=== PATIENT | female | born 1995 | race African-American/Black ===

== ENCOUNTER 2019-05-07 16:57 | Emergency (ER) | payer SELFPAY ==
[~2019-05-07] VITALS: Ht 167.6 cm; Wt 91.0 kg
[2019-05-07] MEDS ORDERED: NITROGLYCERIN 0.4MG TABLET SL SL PRN (18:15)
[2019-05-07] MEDS ORDERED: ASPIRIN 81MG TABLET PO ONE (18:15)
[2019-05-07 18:31] LABS: BASOPHILS % 0.2 % (0.0-2.0); HEMATOCRIT. 38.1 % (36.0-48.0); HEMOGLOBIN. 12.8 g/dL (12.0-16.0); LYMPHOCYTES % 38.5 % (20.0-50.0); MEAN CORPUSCULAR HEMOGLOBIN 27.4 pg (28.0-32.0); MEAN CORPUSCULAR VOLUME 81.4 fL (81.0-99.0); MEAN PLATELET VOLUME 8.1 fl (7.4-10.4); MONOCYTES % 11.5 % (2.0-8.0); NEUTROPHILS % 49.8 % (40.0-76.0); PLATELET 411 x1000/uL (130-400); RED BLOOD CELL COUNT 4.67 mill/uL (4.2-5.4)
[2019-05-07 18:38] LABS: CHLORIDE 108 mEq/L (98-107)
[2019-05-07 18:42] LABS: D-DIMER 0.44 mg/L FEU (<0.50); INR 1.1; PARTIAL THROMBOPLASTIN TIME 27.8 sec (23.4-31.0); PROTHROMBIN TIME 10.9 sec (9.6-11.0)
[2019-05-07 18:47] LABS: T4 FREE 2.94 ng/dL (0.76-1.46)
[2019-05-07 19:18] LABS: HCG SCREEN NEGATIVE
[2019-05-07 19:50] VITALS: BP 125/69
== END 2019-05-07 21:17 | disposition left against medical advice (07) ==
LOC: ER 16:57
DX: R07.89 Other chest pain (principal); R06.02 Shortness of breath
CPT/HCPCS: 36415; 71045; 81025; 83880; 84439; 84443; 84481; 84484; 84703; 85379; 93005; 99284

== ENCOUNTER 2019-05-08 09:39 | Emergency (ER) | payer MEDICAID ==
[~2019-05-08] VITALS: Ht 167.6 cm; Wt 99.7 kg
[2019-05-08] MEDS ORDERED: SODIUM CHLORIDE 0.9% 1,000 ML IV ONE (10:39)
[2019-05-08 11:47] LABS: BASOPHILS % 0.2 % (0.0-2.0); HEMATOCRIT. 38.6 % (36.0-48.0); HEMOGLOBIN. 13.1 g/dL (12.0-16.0); LYMPHOCYTES % 42.8 % (20.0-50.0); MEAN CORPUSCULAR HEMOGLOBIN 27.7 pg (28.0-32.0); MEAN CORPUSCULAR VOLUME 81.7 fL (81.0-99.0); MEAN PLATELET VOLUME 8.3 fl (7.4-10.4); MONOCYTES % 10.9 % (2.0-8.0); NEUTROPHILS % 46.1 % (40.0-76.0); PLATELET 400 x1000/uL (130-400); RED BLOOD CELL COUNT 4.72 mill/uL (4.2-5.4); RED CELL DISTRIBUTION WIDTH 13.1 % (11.6-14.6)
[2019-05-08 11:49] LABS: CHLORIDE 107 mEq/L (98-107)
[2019-05-08 11:52] LABS: D-DIMER 0.52 mg/L FEU (<0.50); PROTHROMBIN TIME 10.7 sec (9.6-11.0)
[2019-05-08 12:08] LABS: HCG SCREEN NEGATIVE
[2019-05-08 12:41] LABS: CLARITY URINE CLEAR (CLEAR); COLOR URINE YELLOW (YELLOW); KETONES URINE NEGATIVE (NEGATIVE); LEUKOCYTE ESTERASE URINE NEGATIVE (NEGATIVE); NITRITE URINE NEGATIVE (NEGATIVE); OCCULT BLOOD URINE NEGATIVE (NEGATIVE); PH URINE 7.5 (4.5-8.0); PROTEIN URINE NEGATIVE (NEGATIVE); SPECIFIC GRAVITY URINE 1.015 (1.005-1.030)
[2019-05-08 13:04] LABS: *AMPHETAMINES SCREEN URINE NEGATIVE (NEGATIVE); *BARBITURATES SCREEN URINE NEGATIVE (NEGATIVE); *BENZODIAZEPINES SCREEN URINE NEGATIVE (NEGATIVE); *COCAINE SCREEN URINE NEGATIVE (NEGATIVE); METHADONE URINE SCREEN NEGATIVE (NEGATIVE)
[2019-05-08 13:05] LABS: CANNABINOID URINE SCREEN NEGATIVE (NEGATIVE); OPIATES URINE SCREEN NEGATIVE (NEGATIVE); PHENCYCLIDINE URINE SCREEN NEGATIVE (NEGATIVE)
[2019-05-08] MEDS ORDERED: IOHEXOL-350 100 ML BOTTLE ONE (16:49)
[2019-05-08 18:18] VITALS: BP 122/74
== END 2019-05-08 19:08 | disposition home or self-care (01) ==
LOC: ER 09:39 → CANBEDREQ 18:44 → ER 19:08
DX: E05.90 Thyrotoxicosis, unspecified without thyrotoxic crisis or storm (principal); Z88.8 Allergy status to other drugs, medicaments and biological substances; R07.89 Other chest pain; R06.02 Shortness of breath
CPT/HCPCS: 36415; 71275; 80053; 80305; 81003; 83880; 84484; 84703; 85025; 85379; 85610; 99284; J7030; Q9967

== ENCOUNTER 2019-06-26 20:48 | Emergency (ER) | payer MEDICAID ==
[~2019-06-26] VITALS: Ht 167.6 cm; Wt 100.0 kg
[2019-06-27] MEDS ORDERED: KETOROLAC 60MG/2ML VIAL IM STA (00:17)
[2019-06-27] MEDS ORDERED: PENICILLIN G BENZATHINE 1,200,000 UNITS/2ML SYR IM ONE (00:30)
[2019-06-27 01:12] VITALS: BP 120/82
== END 2019-06-27 01:13 | disposition home or self-care (01) ==
LOC: ER 20:48
DX: J02.9 Acute pharyngitis, unspecified (principal); J03.90 Acute tonsillitis, unspecified; E05.90 Thyrotoxicosis, unspecified without thyrotoxic crisis or storm; Z88.8 Allergy status to other drugs, medicaments and biological substances
CPT/HCPCS: 81025; 96372; 99283; J0561; J1885

== ENCOUNTER 2020-03-12 14:06 | Emergency (ER) | payer MEDICAID ==
[~2020-03-12] VITALS: Ht 167.6 cm; Wt 91.0 kg
[2020-03-12 14:17] VITALS: BP 128/82
[2020-03-12] MEDS ORDERED: ATEN-42 PO (14:20)
[2020-03-12] MEDS ORDERED: METH10TA7 PO (14:20)
== END 2020-03-12 15:43 | disposition home or self-care (01) ==
LOC: ER 14:06
DX: Z76.0 Encounter for issue of repeat prescription (principal); I10 Essential (primary) hypertension; E05.00 Thyrotoxicosis with diffuse goiter without thyrotoxic crisis or storm; Z88.8 Allergy status to other drugs, medicaments and biological substances
CPT/HCPCS: 99283

== ENCOUNTER 2020-04-01 14:57 | Emergency (ER) | payer MEDICAID ==
[~2020-04-01] VITALS: Ht 167.6 cm; Wt 96.5 kg
[~2020-04-01 14:57] MED LIST: ATEN-42 PO; METH10TA7 PO
[2020-04-01 16:48] LABS: BASOPHILS % 0.2 % (0.0-2.0); HEMATOCRIT. 40.2 % (36.0-48.0); HEMOGLOBIN. 13.6 g/dL (12.0-16.0); LYMPHOCYTES % 27.9 % (20.0-50.0); MEAN CORPUSCULAR HEMOGLOBIN 27.7 pg (28.0-32.0); MEAN CORPUSCULAR VOLUME 81.6 fL (81.0-99.0); MEAN PLATELET VOLUME 7.9 fl (7.4-10.4); MONOCYTES % 5.9 % (2.0-8.0); PLATELET 547 x1000/uL (130-400); RED BLOOD CELL COUNT 4.93 mill/uL (4.2-5.4); RED CELL DISTRIBUTION WIDTH 13.6 % (11.6-14.6)
[2020-04-01 16:54] LABS: CHLORIDE 104 mEq/L (98-107)
[2020-04-01 16:55] LABS: HCG SCREEN NEGATIVE
[2020-04-01 16:58] LABS: ETHANOL BLOOD < 10 mg/dL
[2020-04-01 17:04] LABS: T4 FREE 1.53 ng/dL (0.76-1.46)
[2020-04-01 17:20] LABS: CLARITY URINE CLEAR (CLEAR); COLOR URINE YELLOW (YELLOW); KETONES URINE TRACE (NEGATIVE); LEUKOCYTE ESTERASE URINE NEGATIVE (NEGATIVE); NITRITE URINE NEGATIVE (NEGATIVE); OCCULT BLOOD URINE NEGATIVE (NEGATIVE); PH URINE 5.5 (4.5-8.0); PROTEIN URINE NEGATIVE (NEGATIVE); SPECIFIC GRAVITY URINE 1.031 (1.005-1.030); UROBILINOGEN URINE 0.2 E.U./dL (0.2-1.0)
[2020-04-01 17:47] LABS: OPIATES URINE SCREEN NEGATIVE (NEGATIVE)
[2020-04-01 17:48] LABS: *AMPHETAMINES SCREEN URINE NEGATIVE (NEGATIVE); *BARBITURATES SCREEN URINE NEGATIVE (NEGATIVE); *BENZODIAZEPINES SCREEN URINE NEGATIVE (NEGATIVE); *COCAINE SCREEN URINE NEGATIVE (NEGATIVE); METHADONE URINE SCREEN NEGATIVE (NEGATIVE); PHENCYCLIDINE URINE SCREEN NEGATIVE (NEGATIVE)
[2020-04-01 17:50] LABS: CANNABINOID URINE SCREEN NEGATIVE (NEGATIVE)
[2020-04-01] MEDS ORDERED: ACETAMINOPHEN WITH CODEINE 300/30MG TABLET PO ONE (18:30)
[2020-04-01 18:38] VITALS: BP 124/65
== END 2020-04-01 18:39 | disposition home or self-care (01) ==
LOC: ER 14:57
DX: R51 Headache (principal); E05.90 Thyrotoxicosis, unspecified without thyrotoxic crisis or storm; Z88.8 Allergy status to other drugs, medicaments and biological substances; Z79.899 Other long term (current) drug therapy
CPT/HCPCS: 36415; 71045; 80053; 80305; 80320; 81003; 81025; 83880; 84439; 84443; 84484; 84703; 85025; 93005; 99285; G0480

== ENCOUNTER 2023-03-01 12:52 | Emergency (ER) | payer MEDICAID ==
[~2023-03-01] VITALS: Ht 167.6 cm; Wt 125.0 kg
[~2023-03-01 12:52] MED LIST changes: +METH-372 PO; -METH10TA7 PO
[2023-03-01 13:07] VITALS: BP 126/78
[2023-03-01] MEDS ORDERED: KETOROLAC 60MG/2ML VIAL IM STA (14:20)
[2023-03-01 15:12] LABS: HCG SCREEN NEGATIVE
[2023-03-01 15:15] LABS: CHLORIDE 107 mEq/L (98-107)
[2023-03-01 15:22] LABS: BASOPHILS % 0.3 % (0.0-2.0); HEMATOCRIT. 35.8 % (36.0-48.0); HEMOGLOBIN. 11.9 g/dL (12.0-16.0); LYMPHOCYTES % 28.8 % (20.0-50.0); MEAN CORPUSCULAR VOLUME 87.7 fL (81.0-99.0); MEAN PLATELET VOLUME 8.4 fl (7.4-10.4); MONOCYTES % 6.4 % (2.0-8.0); NEUTROPHILS % 64.5 % (40.0-76.0); PLATELET 422 x1000/uL (130-400); RED BLOOD CELL COUNT 4.09 mill/uL (4.2-5.4); RED CELL DISTRIBUTION WIDTH 13.4 % (11.6-14.6)
[2023-03-01 15:24] LABS: CLARITY URINE CLEAR (CLEAR); COLOR URINE YELLOW (YELLOW); KETONES URINE TRACE (NEGATIVE); LEUKOCYTE ESTERASE URINE NEGATIVE (NEGATIVE); NITRITE URINE NEGATIVE (NEGATIVE); OCCULT BLOOD URINE NEGATIVE (NEGATIVE); PH URINE 6.5 (4.5-8.0); PROTEIN URINE NEGATIVE (NEGATIVE); SPECIFIC GRAVITY URINE 1.026 (1.005-1.030)
[2023-03-01] MEDS ORDERED: NAPR-681 PO (15:57)
[2023-03-01] MEDS ORDERED: CYCL5TAB PO (15:57)
== END 2023-03-01 16:54 | disposition home or self-care (01) ==
LOC: ER 12:52
DX: K76.0 Fatty (change of) liver, not elsewhere classified (principal); Z88.8 Allergy status to other drugs, medicaments and biological substances
CPT/HCPCS: 36415; 71045; 76705; 80053; 81003; 81025; 83690; 84703; 85025; 96372; 99285; J1885

== ENCOUNTER 2023-04-09 18:22 | Emergency (ER) | payer OTHER ==
[~2023-04-09] VITALS: Ht 167.6 cm; Wt 120.7 kg
[~2023-04-09 18:22] MED LIST changes: +CYCL5TAB PO; +NAPR-681 PO
[2023-04-09 18:37] VITALS: BP 127/80
== END 2023-04-09 20:47 | disposition home or self-care (01) ==
LOC: ER 18:22
DX: O26.891 Other specified pregnancy related conditions, first trimester (principal); Z88.5 Allergy status to narcotic agent; Z3A.01 Less than 8 weeks gestation of pregnancy
CPT/HCPCS: 36415; 84702; 99283

== ENCOUNTER 2024-05-19 15:30 | Emergency (ER) | payer OTHER ==
[~2024-05-19] VITALS: Ht 170.2 cm; Wt 110.0 kg
[2024-05-19 15:34] VITALS: O2SAT 98
[2024-05-19] MEDS ORDERED: LACTATED RINGERS 1,000 ML IV SCH (16:00)
[2024-05-19 16:04] VITALS: TEMP 98.6
[2024-05-19 16:43] LABS: BASOPHILS % 0.3 % (0.0-2.0); HEMATOCRIT. 35.1 % (36.0-48.0); HEMOGLOBIN. 11.5 g/dL (12.0-16.0); LYMPHOCYTES % 25.5 % (20.0-50.0); MEAN CORPUSCULAR HEMOGLOBIN 26.9 pg (28.0-32.0); MEAN CORPUSCULAR HGB CONC 32.9 g/dL (31.0-37.0); MEAN PLATELET VOLUME 7.2 fl (7.4-10.4); MONOCYTES % 6.9 % (2.0-8.0); NEUTROPHILS % 67.3 % (40.0-76.0); PLATELET 482 x1000/uL (130-400); RED BLOOD CELL COUNT 4.28 mill/uL (4.2-5.4); RED CELL DISTRIBUTION WIDTH 13.2 % (11.6-14.6); WHITE BLOOD COUNT 7.9 x1000/uL (4.5-11.0)
[2024-05-19 16:50] LABS: CHLORIDE 106 mEq/L (98-107); POTASSIUM 3.3 mEq/L (3.5-5.1); SODIUM 138 mEq/L (136-145)
[2024-05-19 16:51] LABS: CALCIUM 9.2 mg/dL (8.7-10.4); CARBON DIOXIDE 23 mEq/L (21-32)
[2024-05-19 16:55] LABS: CREATININE 0.6 mg/dL (0.6-1.0)
[2024-05-19 16:56] LABS: GLUCOSE 100 mg/dL (70-105); UREA NITROGEN BLOOD 11 mg/dL (9-23)
[2024-05-19 17:00] LABS: HCG SCREEN NEGATIVE
[2024-05-19 17:15] LABS: TROPONIN I HIGH SENSITIVITY < 4 ng/L (3.0-34)
[2024-05-19 20:29] VITALS: BP 125/94; PULSE 111; RESP 17
[2024-05-19] MEDS ORDERED: IOHEXOL-350 100 ML BOTTLE ONE (23:50)
== END 2024-05-19 21:28 | disposition home or self-care (01) ==
LOC: ER 15:30
DX: R07.9 Chest pain, unspecified (principal); R42 Dizziness and giddiness; I10 Essential (primary) hypertension; E05.00 Thyrotoxicosis with diffuse goiter without thyrotoxic crisis or storm; Z98.890 Other specified postprocedural states; Z88.5 Allergy status to narcotic agent
CPT/HCPCS: 36415; 71045; 71275; 80048; 81025; 84484; 84703; 85025; 85379; 93005; 99285; Q9967

== ENCOUNTER 2024-07-31 12:00 | Emergency (ER) | payer OTHER ==
[~2024-07-31] VITALS: Ht 167.6 cm; Wt 129.0 kg
[2024-07-31 12:03] VITALS: BP 128/56; RESP 16; O2SAT 99
[2024-07-31 12:05] VITALS: PULSE 98; TEMP 37.22520
[2024-07-31] MEDS ORDERED: CEPH250C2 MT (13:16)
[2024-07-31] MEDS ORDERED: BO1 TP (13:16)
== END 2024-07-31 13:37 | disposition home or self-care (01) ==
LOC: ER 12:00
DX: K13.0 Diseases of lips (principal); Z88.5 Allergy status to narcotic agent; Z98.890 Other specified postprocedural states; E05.00 Thyrotoxicosis with diffuse goiter without thyrotoxic crisis or storm
CPT/HCPCS: 99283

== ENCOUNTER 2024-08-09 07:30 | Emergency (ER) | payer OTHER ==
[~2024-08-09] VITALS: Ht 167.6 cm; Wt 131.0 kg
[~2024-08-09 07:30] MED LIST changes: +BO1 TP; +CEPH250C2 MT
[2024-08-09 08:09] VITALS: O2SAT 100
[2024-08-09 08:57] LABS: BASOPHILS % 0.3 % (0.0-2.0); EOSINOPHILS % 0.1 % (0.0-5.0); HEMATOCRIT. 34.5 % (36.0-48.0); HEMOGLOBIN. 11.6 g/dL (12.0-16.0); MEAN CORPUSCULAR HGB CONC 33.5 g/dL (31.0-37.0); MEAN CORPUSCULAR VOLUME 80.4 fL (81.0-99.0); MEAN PLATELET VOLUME 7.5 fl (7.4-10.4); MONOCYTES % 7.6 % (2.0-8.0); PLATELET 468 x1000/uL (130-400); RED BLOOD CELL COUNT 4.29 mill/uL (4.2-5.4); WHITE BLOOD COUNT 6.5 x1000/uL (4.5-11.0)
[2024-08-09 09:05] LABS: CHLORIDE 109 mEq/L (98-107); POTASSIUM 3.4 mEq/L (3.5-5.1); SODIUM 138 mEq/L (136-145)
[2024-08-09 09:06] LABS: CALCIUM 9.1 mg/dL (8.7-10.4); CARBON DIOXIDE 23 mEq/L (21-32)
[2024-08-09 09:11] LABS: CREATININE 0.5 mg/dL (0.6-1.0); GLUCOSE 103 mg/dL (70-105); UREA NITROGEN BLOOD 13 mg/dL (9-23)
[2024-08-09 09:28] LABS: HCG SCREEN NEGATIVE
[2024-08-09 10:06] VITALS: BP 132/58; PULSE 84; RESP 18; TEMP 36.66960; O2SAT 100
== END 2024-08-09 10:14 | disposition home or self-care (01) ==
LOC: ER 07:30
DX: R06.02 Shortness of breath (principal); I10 Essential (primary) hypertension; G47.30 Sleep apnea, unspecified; E05.90 Thyrotoxicosis, unspecified without thyrotoxic crisis or storm; R51.9 Headache, unspecified; Z98.890 Other specified postprocedural states; Z79.899 Other long term (current) drug therapy; Z88.8 Allergy status to other drugs, medicaments and biological substances
CPT/HCPCS: 36415; 71045; 80048; 84703; 85025; 93005; 99285

== ENCOUNTER 2025-04-20 22:36 | Emergency (ER) | payer OTHER, MEDICAID ==
[~2025-04-20] VITALS: Ht 167.6 cm; Wt 138.0 kg
[~2025-04-20 22:36] MED LIST changes: -CYCL5TAB PO; +CYCL5TAB3 PO
[2025-04-20 22:42] VITALS: TEMP 36.6; O2SAT 98
[2025-04-20 23:30] LABS: CLARITY URINE CLEAR (CLEAR); COLOR URINE DARK YELLOW (YELLOW); GLUCOSE URINE NEGATIVE (NEGATIVE); KETONES URINE TRACE (NEGATIVE); LEUKOCYTE ESTERASE URINE NEGATIVE (NEGATIVE); NITRITE URINE NEGATIVE (NEGATIVE); OCCULT BLOOD URINE NEGATIVE (NEGATIVE); PROTEIN URINE 1+ (NEGATIVE); SPECIFIC GRAVITY URINE 1.032 (1.005-1.030)
[2025-04-21 00:07] LABS: BASOPHILS % 0.2 % (0.0-2.0); HEMATOCRIT. 39.6 % (36.0-48.0); HEMOGLOBIN. 12.8 g/dL (12.0-16.0); LYMPHOCYTES % 10.8 % (20.0-50.0); MEAN CORPUSCULAR HGB CONC 32.3 g/dL (31.0-37.0); MEAN CORPUSCULAR VOLUME 83.8 fL (81.0-99.0); MONOCYTES % 4.4 % (2.0-8.0); NEUTROPHILS % 84.6 % (40.0-76.0); PLATELET 499 x1000/uL (130-400); RED BLOOD CELL COUNT 4.72 mill/uL (4.2-5.4); RED CELL DISTRIBUTION WIDTH 13.7 % (11.6-14.6); WHITE BLOOD COUNT 19.7 x1000/uL (4.5-11.0)
[2025-04-21] MEDS: HYDROCODONE/ACETAMINOPHEN 5/325MG TABLET PO ONE (00:09)
[2025-04-21 00:18] LABS: CHLORIDE 103 mEq/L (98-107); POTASSIUM 4.4 mEq/L (3.5-5.1); SODIUM 138 mEq/L (136-145)
[2025-04-21 00:19] LABS: CALCIUM 9.5 mg/dL (8.7-10.4); CARBON DIOXIDE 24 mEq/L (21-32)
[2025-04-21 00:24] LABS: CREATININE 0.7 mg/dL (0.6-1.0); GLUCOSE 117 mg/dL (70-105); UREA NITROGEN BLOOD 15 mg/dL (9-23)
[2025-04-21 00:26] LABS: ALANINE AMINOTRANSFERASE 60 IU/L (10-49); ALBUMIN 4.7 g/dL (3.2-4.8); ASPARTATE AMINOTRANSFERASE 131 IU/L (<34); BILIRUBIN DIRECT 0.2 mg/dL (<=3.0); BILIRUBIN TOTAL 0.4 mg/dL (0.1-1.0); PROTEIN TOTAL 8.2 g/dL (6.0-8.3)
[2025-04-21 00:30] LABS: HCG SCREEN NEGATIVE
[2025-04-21 01:05] LABS: TROPONIN I HIGH SENSITIVITY < 4 ng/L (3.0-34)
[2025-04-21 03:00] LABS: SQUAMOUS EPITHELIAL CELL URINE 1+ /lpf (RARE/1+)
[2025-04-21 03:01] LABS: RBC URINE 0-2 /hpf (0-2); WBC URINE 0-2 /hpf (0-2)
[2025-04-21 03:02] LABS: BACTERIA URINE NONE SEEN; YEAST URINE Few budding yeasts
[2025-04-21] MEDS: SODIUM CHLORIDE 0.9% 1,000 ML IV ONE (03:20)
[2025-04-21] MEDS: CEFTRIAXONE 1GM/50ML 50 ML IV ONE (03:21)
[2025-04-21 03:28] LABS: THYROID STIMULATING HORMONE < 0.10 uIU/mL (0.55-4.78); TROPONIN I HIGH SENSITIVITY < 4 ng/L (3.0-34)
[2025-04-21] MEDS ORDERED: IOHEXOL-350 100 ML BOTTLE ONE (05:36)
[2025-04-21 06:34] VITALS: O2SAT 99
[2025-04-21 06:36] VITALS: BP 123/76; PULSE 97; RESP 22; TEMP 97.9
== END 2025-04-21 06:51 | disposition left against medical advice (07) ==
LOC: ER 22:36 → EDBEDREQ 04-21 06:23 → EDBEDREQTM 04-21 06:23 → ENRESERV 04-21 06:28 → CANBEDREQ 04-21 06:48 → ER 04-21 06:51 → ENRESERVTM 04-21 06:51 → CANRESERV 04-21 06:51
DX: N83.202 Unspecified ovarian cyst, left side (principal); R07.89 Other chest pain; R10.12 Left upper quadrant pain; D72.829 Elevated white blood cell count, unspecified; Z79.899 Other long term (current) drug therapy
CPT/HCPCS: 99285; 74176; 71045; 80076; 80048; 81003; 81025; 84703; 83690; 85025; 85379; 84484; 36415; 93005; 96365; 71275; 96361; Q9967; J0696; J7030; 99291